=== PATIENT | male | born 1975 | race Caucasian/White ===

== ENCOUNTER 2017-02-28 16:37 | Emergency (ER) | payer MEDICAID ==
[~2017-02-28] VITALS: Ht 180.3 cm; Wt 64.8 kg
[2017-02-28 17:36] LABS: ASPARTATE AMINO TRANSFERASE 120 U/L (15-37); BLOOD UREA NITROGEN 4 mg/dL (7-18)
[2017-02-28 17:45] LABS: HEMATOCRIT 38.9 % (39.2-51.8); HEMOGLOBIN 12.8 g/dL (13.7-18.0); WHITE BLOOD COUNT 6.2 x10^3/uL (3.4-10)
[2017-02-28 18:43] VITALS: BP 108/75
== END 2017-02-28 18:46 | disposition home or self-care (01) ==
LOC: ED 18:02
DX: E86.0 Dehydration (principal); R10.84 Generalized abdominal pain
CPT/HCPCS: 36415; 80053; 81003; 83690; 85025; 99284

== ENCOUNTER 2018-04-22 06:24 | Emergency (ER) | payer MEDICAID ==
[~2018-04-22] VITALS: Ht 180.3 cm; Wt 66.5 kg
[2018-04-22 06:27] VITALS: BP 138/88
[2018-04-22] MEDS ORDERED: DEXAMETHASONE 4 MG/ML, 1ML ONE (06:51)
--- NOTE | 2018-04-22 06:57 | NUR ---
42 Y/O MALE PRESENTS TO ED WITH C/O COUGH, BODY ACHES X 4 DAYS. "I'VE BEEN SICK FOR ABOUT 4 DAYS, IT'S GOTTEN WORSE OVER THE LAST TWO." NO ACUTE DISTRESS NOTED. NO NEEDS REQUESTED AT THIS TIME.
[2018-04-22] MEDS ORDERED: DEXAMETHASONE 4 MG/ML, 1ML PO ONE (07:00)
--- NOTE | 2018-04-22 07:04 | NUR ---
PT AMBULATORY WITH STEADY GAIT TO IMAGING.
--- NOTE | 2018-04-22 07:34 | NUR ---
Patient/Caregiver given discharge instructions and they have confirmed that they understand the instructions. Patient ambulatory with steady gait. PT LEFT WITH ALL PERSONAL BELONGINGS.
== END 2018-04-22 07:36 | disposition home or self-care (01) ==
LOC: ED 07:30
DX: B34.9 Viral infection, unspecified (principal); Z87.891 Personal history of nicotine dependence
CPT/HCPCS: 71046; 99283; J1100